=== PATIENT | male | born 1975 | race African-American/Black ===

== ENCOUNTER 2020-12-12 14:34 | Emergency (ER) | payer OTHER ==
[2020-12-12] MEDS ORDERED: predniSONE 20 MG TAB ONE (18:10)
[2020-12-12] MEDS ORDERED: Ventolin HFA Inhaler 60 PUFF INHALER ONE (18:23)
[2020-12-13 11:53] LABS: SARS-CoV-2 PCR by NAA DETECTED (NotDetected)
== END 2020-12-12 19:00 | disposition home or self-care (01) ==
LOC: CSHERS 14:34
DX: U07.1 COVID-19 (principal); J44.1 Chronic obstructive pulmonary disease with (acute) exacerbation; F17.210 Nicotine dependence, cigarettes, uncomplicated
CPT/HCPCS: 93005; 93010; 94664; 94760; J7512; U0003; U0005

== ENCOUNTER 2021-04-05 02:05 | Emergency (ER) | payer OTHER ==
[2021-04-05] MEDS ORDERED: Acetaminophen 500 MG TAB ONE (02:59)
[2021-04-05 17:06] LABS: SARS-CoV-2 PCR by NAA DETECTED (NotDetected)
== END 2021-04-05 03:55 | disposition home or self-care (01) ==
LOC: CSHERS 02:05
DX: U07.1 COVID-19 (principal); J44.9 Chronic obstructive pulmonary disease, unspecified; F17.210 Nicotine dependence, cigarettes, uncomplicated
CPT/HCPCS: 87804; 99283; U0003; U0005

== ENCOUNTER 2021-04-22 20:08 | Emergency (ER) | payer OTHER ==
[2021-04-22 21:13] LABS: #Eosinphils 0.2 10x3/uL (0.0-0.5); #Monocytes 0.6 10x3/uL (0.0-1.1); #Neutrophils 3.6 10x3/uL (1.5-8.4); %Basophils 0.5 % (0.0-2.0); %Lymphocytes 40.8 % (18.0-47.0); %Monocytes 8.2 % (0.0-10.0); %Neutrophils 47.8 % (40.0-75.0); Hemoglobin 13.4 g/dL (13.5-17.5); Mean Corpuscular HGB CONC 32.4 g/dL (32.0-36.0); Mean Corpuscular Volume 95.6 fl (81.2-95.1); Mean Platelet Volume 10.6 fl (7.4-10.4); Platelet Count 188 10x3/uL (150-450); RBC Distribution Width 13.1 % (11.5-14.5); Red Blood Cell (RBC) Count 4.32 10x6/uL (4.32-5.72); White Blood Cell (WBC) Count 7.5 10x3/uL (3.5-10.5)
[2021-04-22 21:22] LABS: ALT (SGPT) 15 U/L (8-55); AST (SGOT) 29 U/L (5-34); Albumin 3.8 g/dL (3.5-5.0); Alkaline Phosphatase 63 U/L (40-110); Anion Gap 10 mmol/L (10-20); BUN (Urea Nitrogen) 12 mg/dL (8.9-20.6); Bilirubin, Total 0.3 mg/dL (0.2-1.2); CK (CPK) 1115 U/L (30-200); Calc. Creatinine Clearance 0 mL/min (70-130); Calcium 8.6 mg/dL (7.8-10.44); Carbon Dioxide 24 mmol/L (22-29); Chloride 111 mmol/L (98-107); Glucose 91 mg/dL (70-105); Potassium 4.2 mmol/L (3.5-5.1); Protein, Total 6.8 g/dL (6.0-8.3); Sodium 141 mmol/L (136-145)
[2021-04-22 22:07] LABS: Bilirubin Neg (Negative); Blood, Urine Negative (Negative); Clarity Clear (Clear); Glucose, Urine (Dipstick) Normal (Negative); Ketone, Urine Negative (Negative); Leukocyte Negative (Negative); Nitrite Negative (Negative); Protein, Urine (Dipstick) Negative (Neg-Trace); Urobilinogen Normal mg/dL (Less than 2)
[2021-04-22 22:17] LABS: Amphetamine Not Detected (NotDetected); Barbiturates Screen Not Detected (NotDetected); Benzodiazepine Screen Not Detected (NotDetected); Cocaine Metabolite Screen Not Detected (NotDetected); Methadone Not Detected (NotDetected); Methamphetamine Not Detected (NotDetected); Opiate Screen Not Detected (NotDetected); Oxycodone Screen Not Detected (NotDetected); Phencyclidine (PCP) Not Detected (NotDetected); THC/Cannabinoid Screen Not Detected (NotDetected); Tricyclic Screen Not Detected (NotDetected)
== END 2021-04-23 00:18 | disposition home or self-care (01) ==
LOC: CSHERS 20:08
DX: R55 Syncope and collapse (principal); J44.9 Chronic obstructive pulmonary disease, unspecified; F17.210 Nicotine dependence, cigarettes, uncomplicated
CPT/HCPCS: 70450; 80053; 80306; 80307; 81003; 82550; 84484; 85025; 93005

== ENCOUNTER 2021-05-09 15:51 | Emergency (ER) | payer OTHER ==
[2021-05-09 16:22] LABS: #Eosinphils 0.1 10x3/uL (0.0-0.5); #Monocytes 0.6 10x3/uL (0.0-1.1); #Neutrophils 3.3 10x3/uL (1.5-8.4); %Basophils 0.6 % (0.0-2.0); %Eosinophils 1.4 % (0.0-6.0); %Lymphocytes 41.2 % (18.0-47.0); %Monocytes 8.9 % (0.0-10.0); %Neutrophils 47.3 % (40.0-75.0); Hemoglobin 15.4 g/dL (13.5-17.5); Mean Corpuscular Hemoglobin 31.7 pg (27.0-33.0); Mean Corpuscular Volume 95.9 fl (81.2-95.1); Mean Platelet Volume 10.3 fl (7.4-10.4); Platelet Count 168 10x3/uL (150-450); RBC Distribution Width 13.9 % (11.5-14.5); Red Blood Cell (RBC) Count 4.86 10x6/uL (4.32-5.72)
[2021-05-09 16:38] LABS: PTT 26.2 sec (22.0-33.0); Prothrombin Time 10.8 sec (9.5-12.1)
[2021-05-09 16:40] LABS: ALT (SGPT) 15 U/L (8-55); AST (SGOT) 17 U/L (5-34); Albumin 3.7 g/dL (3.5-5.0); Alkaline Phosphatase 57 U/L (40-110); Anion Gap 11 mmol/L (10-20); BUN (Urea Nitrogen) 9 mg/dL (8.9-20.6); Bilirubin, Total 0.8 mg/dL (0.2-1.2); Calc. Creatinine Clearance 0 mL/min (70-130); Calcium 8.7 mg/dL (7.8-10.44); Carbon Dioxide 25 mmol/L (22-29); Chloride 110 mmol/L (98-107); Globulin 2.8 g/dL (2.4-3.5); Glucose 98 mg/dL (70-105); Lipase 54 U/L (8-78); Potassium 3.7 mmol/L (3.5-5.1); Protein, Total 6.5 g/dL (6.0-8.3); Sodium 142 mmol/L (136-145)
== END 2021-05-09 17:37 | disposition home or self-care (01) ==
LOC: CSHERS 15:51
DX: S20.229A Contusion of unspecified back wall of thorax, initial encounter (principal); J44.9 Chronic obstructive pulmonary disease, unspecified; F17.210 Nicotine dependence, cigarettes, uncomplicated; V89.2XXA Person injured in unspecified motor-vehicle accident, traffic, initial encounter
CPT/HCPCS: 36415; 70450; 71045; 71260; 72125; 72170; 74177; 80053; 83690; 85025; 85610; 85730

== ENCOUNTER 2021-08-13 10:04 | Emergency (ER) | payer OTHER ==
[2021-08-13] MEDS ORDERED: Ibuprofen 200 MG TAB ONE (11:08)
[2021-08-13] MEDS ORDERED: HYDROcodone/Acetaminophen 5/325 mg Tablet ONE (11:09)
== END 2021-08-13 11:43 | disposition home or self-care (01) ==
LOC: CSHERS 10:04
DX: M25.512 Pain in left shoulder (principal); J44.9 Chronic obstructive pulmonary disease, unspecified; F17.210 Nicotine dependence, cigarettes, uncomplicated; W20.8XXA Other cause of strike by thrown, projected or falling object, initial encounter

== ENCOUNTER 2021-10-12 05:35 | Emergency (ER) | payer OTHER | END 2021-10-12 06:52 | disposition home or self-care (01) | LOC: CSHERS 05:35 | DX: J45.901 Unspecified asthma with (acute) exacerbation (principal); F17.210 Nicotine dependence, cigarettes, uncomplicated | CPT/HCPCS: 71045; 93005; 94640; J7620 ==

== ENCOUNTER 2021-11-30 19:35 | Emergency (ER) | payer OTHER ==
[2021-11-30] MEDS ORDERED: predniSONE 20 MG TAB ONE (21:04)
[2021-11-30] MEDS ORDERED: Ventolin HFA Inhaler 60 PUFF INHALER ONE (21:04)
== END 2021-11-30 21:50 | disposition home or self-care (01) ==
LOC: CSHERS 19:35
DX: J44.1 Chronic obstructive pulmonary disease with (acute) exacerbation (principal); F17.210 Nicotine dependence, cigarettes, uncomplicated
CPT/HCPCS: 71045; J7512

== ENCOUNTER 2021-12-02 14:36 | Emergency (ER) | payer OTHER ==
[2021-12-02] MEDS ORDERED: Acetaminophen 500 MG TAB ONE (15:25)
[2021-12-02] MEDS ORDERED: Ketorolac Tromethamine 30 MG/ML VIAL ONE (15:27)
== END 2021-12-02 16:32 | disposition home or self-care (01) ==
LOC: CSHERS 14:36
DX: S80.02XA Contusion of left knee, initial encounter (principal); F17.210 Nicotine dependence, cigarettes, uncomplicated; J44.9 Chronic obstructive pulmonary disease, unspecified; V43.52XA Car driver injured in collision with other type car in traffic accident, initial encounter
CPT/HCPCS: 96372; J1885

== ENCOUNTER 2021-12-06 22:58 | Emergency (ER) | payer OTHER ==
[2021-12-07 00:03] LABS: #Eosinphils 0.1 10x3/uL (0.0-0.5); #Monocytes 0.6 10x3/uL (0.0-1.1); #Neutrophils 6.5 10x3/uL (1.5-8.4); %Basophils 0.3 % (0.0-2.0); %Eosinophils 0.7 % (0.0-6.0); %Lymphocytes 20.7 % (18.0-47.0); %Monocytes 6.9 % (0.0-10.0); %Neutrophils 71.1 % (40.0-75.0); Hemoglobin 15.3 g/dL (13.5-17.5); Mean Corpuscular HGB CONC 33.8 g/dL (32.0-36.0); Mean Corpuscular Hemoglobin 32.2 pg (27.0-33.0); Mean Corpuscular Volume 95.2 fl (81.2-95.1); Mean Platelet Volume 10.4 fl (7.4-10.4); Platelet Count 168 10x3/uL (150-450); RBC Distribution Width 13.2 % (11.5-14.5); Red Blood Cell (RBC) Count 4.75 10x6/uL (4.32-5.72); White Blood Cell (WBC) Count 9.1 10x3/uL (3.5-10.5)
[2021-12-07 00:15] LABS: Bilirubin Neg (Negative); Blood, Urine Negative (Negative); Clarity Clear (Clear); Glucose, Urine (Dipstick) Normal (Negative); Ketone, Urine Negative (Negative); Leukocyte Negative (Negative); Nitrite Negative (Negative); Protein, Urine (Dipstick) Negative (Neg-Trace)
[2021-12-07 00:23] LABS: Amphetamine Not Detected (NotDetected); Barbiturates Screen Not Detected (NotDetected); Benzodiazepine Screen Not Detected (NotDetected); Cocaine Metabolite Screen Not Detected (NotDetected); Methadone Not Detected (NotDetected); Methamphetamine Not Detected (NotDetected); Opiate Screen Not Detected (NotDetected); Oxycodone Screen Not Detected (NotDetected); Phencyclidine (PCP) Detected (NotDetected); THC/Cannabinoid Screen Not Detected (NotDetected); Tricyclic Screen Not Detected (NotDetected)
[2021-12-07 00:53] LABS: ALT (SGPT) 16 U/L (8-55); AST (SGOT) 16 U/L (5-34); Albumin 3.3 g/dL (3.5-5.0); Alkaline Phosphatase 52 U/L (40-110); Anion Gap 11 mmol/L (10-20); BUN (Urea Nitrogen) 12 mg/dL (8.9-20.6); Bilirubin, Total 0.9 mg/dL (0.2-1.2); Calc. Creatinine Clearance 0 mL/min (70-130); Calcium 8.3 mg/dL (7.8-10.44); Carbon Dioxide 24 mmol/L (22-29); Chloride 111 mmol/L (98-107); Estimated GFR 84; Globulin 2.1 g/dL (2.4-3.5); Glucose 104 mg/dL (70-105); Potassium 4.1 mmol/L (3.5-5.1); Protein, Total 5.4 g/dL (6.0-8.3); Sodium 142 mmol/L (136-145)
[2021-12-07 00:54] LABS: Acetaminophen Less than 10.0 mcg/mL (10.0-30.0); Alcohol Less than 10 mg/dL (Less than 10); CK (CPK) 329 U/L (30-200); Lipase 70 U/L (8-78); Magnesium 1.8 mg/dL (1.6-2.6); Salicylate Less than 8.0 mg/dL (15.0-30.0)
== END 2021-12-07 02:37 | disposition home or self-care (01) ==
LOC: CSHERS 22:58
DX: F16.129 Hallucinogen abuse with intoxication, unspecified (principal); F31.9 Bipolar disorder, unspecified; J44.9 Chronic obstructive pulmonary disease, unspecified; F17.210 Nicotine dependence, cigarettes, uncomplicated
CPT/HCPCS: 70450; 71045; 80053; 80306; 80307; 81003; 82550; 83605; 83690; 83735; 84443; 84484; 85025; 93005

== ENCOUNTER 2023-01-11 21:14 | Emergency (ER) | payer OTHER ==
[2023-01-11] MEDS ORDERED: Ketorolac Tromethamine 30 MG/ML VIAL ONE (21:49)
[2023-01-11] MEDS ORDERED: traMADol HCl 50 MG TAB ONE (21:49)
== END 2023-01-11 23:15 | disposition home or self-care (01) ==
LOC: CSHERS 21:14
DX: L84 Corns and callosities (principal); J44.9 Chronic obstructive pulmonary disease, unspecified; F17.210 Nicotine dependence, cigarettes, uncomplicated
CPT/HCPCS: 96372; J1885